=== PATIENT | male | born 1965 | race Caucasian/White ===

== ENCOUNTER 2018-05-24 07:29 | Outpatient (CLI) | payer OTHER ==
[~2018-05-24 07:29] MED LIST: ZOCOR20 MG PO
== END 2018-05-24 08:26 | disposition home or self-care (01) ==
LOC: TOM 07:29
DX: R10.84 Generalized abdominal pain (principal)

== ENCOUNTER → 2020-10-07 10:40 | Outpatient (CLI) | payer OTHER ==
[~2020-10-07 10:40] MED LIST changes: +CRESTOR5 MG PO; +SYNTHROID88 MCG PO
== END | disposition home or self-care (01) ==
LOC: EDBD 10:40 → LAB 10:40
PROVIDERS: ATTEND Specialist
DX: Z20.828 Contact with and (suspected) exposure to other viral communicable diseases (principal)

== ENCOUNTER 2020-10-08 04:41 | Day surgery (SDC) | payer OTHER | END 2020-10-08 17:55 | disposition home or self-care (01) | LOC: EDBD 04:41 → CIR.AMB 04:41 → EDBD 10:45 → CIR.AMB 10:45 | PROVIDERS: ATTEND Specialist | DX: K40.90 Unilateral inguinal hernia, without obstruction or gangrene, not specified as recurrent (principal); Z20.828 Contact with and (suspected) exposure to other viral communicable diseases ==

== ENCOUNTER 2024-05-01 08:24 | Outpatient (CLI) | payer OTHER | END 2024-05-01 08:36 | disposition home or self-care (01) | LOC: TOM 08:24 | PROVIDERS: ATTEND Specialist | DX: R10.30 Lower abdominal pain, unspecified (principal) ==